=== PATIENT | male | born 1960 | race Hispanic/Latino ===

== ENCOUNTER 2020-08-29 12:51 | Emergency (ER) | payer OTHER ==
[2020-08-29] MEDS ORDERED: Iopamidol-370 76% 500 ML 1 ML ONE (14:11)
[2020-08-29 14:31] LABS: #Basophils 0.1 thou/uL (0.0-0.2); #Eosinphils 0.1 thou/uL (0.0-0.7); #Lymphocytes 1.7 thou/uL (1.20-3.40); #Monocytes 0.5 thou/uL (0.11-0.59); #Neutrophils 4.7 thou/uL (1.40-6.50); %Basophils 0.7 % (0.0-1.0); %Eosinophils 0.8 % (0.0-10.0); %Lymphocytes 24.3 % (21.0-51.0); %Monocytes 7.5 % (0.0-10.0); %Neutrophils 66.6 % (42.0-75.0); Hemoglobin 15.5 g/dL (14.0-18.0); Mean Corpuscular HGB CONC 32.8 g/dL (32.0-36.0); Mean Corpuscular Hemoglobin 27.5 pg (27.0-31.0); Mean Corpuscular Volume 83.8 fL (78.0-98.0); Mean Platelet Volume 8.1 fL (7.4-10.4); Platelet Count 280 thou/uL (130-400); RBC Distribution Width 13.5 % (11.5-14.5); Red Blood Cell (RBC) Count 5.65 mill/uL (4.70-6.10)
[2020-08-29 14:51] LABS: ALT (SGPT) 18 U/L (8-55); AST (SGOT) 19 U/L (5-34); Alkaline Phosphatase 88 U/L (40-110); Anion Gap 14 mmol/L (10-20); BUN (Urea Nitrogen) 16 mg/dL (8.4-25.7); Bilirubin, Total 1.1 mg/dL (0.2-1.2); Calc. Creatinine Clearance 0 mL/min (70-130); Calcium 9.2 mg/dL (7.8-10.44); Carbon Dioxide 25 mmol/L (22-29); Chloride 99 mmol/L (98-107); Estimated GFR-MDRD 56; Globulin 3.9 g/dL (2.4-3.5); Glucose 91 mg/dL (70-105); Lipase 18 U/L (8-78); Potassium 4.3 mmol/L (3.5-5.1); Protein, Total 7.9 g/dL (6.0-8.3); Sodium 134 mmol/L (136-145)
[2020-08-29 14:58] LABS: Bacteria/HPF None Seen HPF (None Seen); Bilirubin Negative (Negative); Blood, Urine 1+ (Negative); Clarity Clear (Clear); Glucose, Urine (Dipstick) Normal (Negative); Ketone, Urine Negative (Negative); Leukocyte Negative Leu/uL (Negative); Nitrite Negative (Negative); Protein, Urine (Dipstick) 50 mg/dL (Neg-Trace); Specific Gravity, Urine 1.031 (1.002-1.036); Squamous Epithelial None Seen HPF (0-3); WBC/HPF 0-3 HPF (0-3); pH, Urine 5.5 (5.0-9.0)
--- NOTE | 2020-08-29 15:55 | CT ---
CT ABDOMEN AND PELVIS PERFORMED WITH CONTRAST ENHANCEMENT: 08/29/20 HISTORY: 60-year-old with right upper and left lower quadrant abdomen pain. The lung bases are clear. The liver shows an element of fatty change. The spleen and pancreas regions are unremarkable. Gallbladder has been removed. There is a 1.6 cm right adrenal nodule and a 4.1 cm left adrenal mass. There is a 10.4 cm upper pole left renal mass. I do not see any evidence for renal vein invasion. The right kidney is normal in appearance. There are some small nodes in the 1 cm rang e along the medial border of the mass near the takeoff of the celiac artery. CT OF PELVIS PERFORMED WITH CONTRAST ENHANCEMENT: Diverticulosis of the descending and sigmoid colon are seen. No adenopathy or mass. The appendix is n ormal. Review of osseous structures show arthritic change of the spine. IMPRESSION: 1. 10.4 cm left renal mass highly suspicious for a renal cell carcinoma. There is evidence for b ilateral adrenal metastases and some small periaortic nodes noted near the takeoff of the celiac and superior mesenteric arteries. 2. Incidental note is made of a punctate nonobstructing lower pole right renal calculus. 3. Diverticulosis. 4. Suggestion of some element of fatty change of the liver. 5. Findings telephoned to Ruslan Davis at the time of this dictation. [place] [facility] [place]
--- NOTE | 2020-08-29 15:59 | RAD ---
Chest 2 views HISTORY: Chest pain. FINDINGS: Cardiac silhouette and pulmonary vasculature are unremarkable. Mediastinum is midline. Lobu lar fatty prominence along the lateral aspect of the pleural space of each hemithorax correlates with CT findings. No confluent airspace consolidation, pneumothorax, or pleural fluid are evident. IMPRESSION : No active cardiopulmonary abnormalities are demonstrated.
== END 2020-08-29 16:04 | disposition home or self-care (01) ==
LOC: ERS 12:51
DX: N20.0 Calculus of kidney (principal); R10.84 Generalized abdominal pain; E78.5 Hyperlipidemia, unspecified; E78.00 Pure hypercholesterolemia, unspecified; I10 Essential (primary) hypertension; Z79.899 Other long term (current) drug therapy
CPT/HCPCS: 36415; 71046; 74177; 80053; 81003; 81015; 83605; 83690; 85025; Q9967

== ENCOUNTER 2020-09-09 06:56 | Outpatient (CLI) | payer BC ==
[2020-09-09 10:54] LABS: Hemoglobin 14.3 g/dL (14.0-18.0); Mean Corpuscular HGB CONC 31.6 G/DL (32.0-36.0); Mean Corpuscular Hemoglobin 26.1 PG (27.0-33.0); Mean Corpuscular Volume 82.6 fl (80.0-100.0); Mean Platelet Volume 10.5 fl (7.4-10.4); Platelet Count 338 10x3/uL (130-400); RBC Distribution Width 14.2 % (11.5-14.5); Red Blood Cell (RBC) Count 5.47 10x6/uL (4.40-5.80); White Blood Cell (WBC) Count 7.8 10x3/uL (4.5-11.0)
[2020-09-09 11:04] LABS: Anion Gap 12 mmol/L (10-20); BUN (Urea Nitrogen) 15 mg/dL (8.4-25.7); Calc. Creatinine Clearance 0 mL/min (70-130); Calcium 8.9 mg/dL (7.8-10.44); Carbon Dioxide 25 mmol/L (22-29); Chloride 105 mmol/L (98-107); Estimated GFR-MDRD 68; Glucose 96 mg/dL (70-105); Potassium 4.4 mmol/L (3.5-5.1); Sodium 138 mmol/L (136-145)
[2020-09-09 11:12] LABS: PTT 27.6 sec (22.0-33.0); Prothrombin Time 10.3 sec (9.5-12.1)
[2020-09-09 22:24] LABS: SARS-CoV-2 MS2 Positive; SARS-CoV-2 N Gene Negative; SARS-CoV-2 S Gene Negative; SARS-CoV-2 by NAA Not Detected (NotDetected); SARS-CoV-2 orf1ab Negative
--- NOTE | 2020-09-12 07:02 | EKG ---
Test Reason : PREOP Blood Pressure : / mmHG Vent. Rate : 068 BPM Atrial Rate : 068 BPM P-R Int : 126 ms QRS Dur : 082 ms QT Int : 358 ms P-R-T Axes : 071 080 069 degrees QTc Int : 380 ms Normal sinus rhythm Normal ECG No previous ECGs available Confirmed by MEGHA DOLAN, JOAO ([id number]) on 09/12/2020 7:02:11 AM Referred By: Ricki HOOVER Confirmed By:JOAO CLEVELAND MD
== END 2020-09-09 06:57 | disposition home or self-care (01) ==
LOC: LABBT 06:56
PROVIDERS: ATTEND Urology
DX: Z01.818 Encounter for other preprocedural examination (principal); D41.02 Neoplasm of uncertain behavior of left kidney; N18.31 Chronic kidney disease, stage 3a; E27.8 Other specified disorders of adrenal gland; Z20.828 Contact with and (suspected) exposure to other viral communicable diseases
CPT/HCPCS: 80048; 85027; 85610; 85730; 87635; 93005; 93010; U0003

== ENCOUNTER 2020-09-09 10:30 | Inpatient (IN) | payer BC ==
[2020-09-11 10:13] VITALS: BMI 34.0
[2020-09-12] MEDS ORDERED: niCARdipine 25 MG/10 ML VIAL ONE (06:52)
[2020-09-12] MEDS ORDERED: Phenylephrine 10 MG/ML VIAL ONE (06:52)
[2020-09-12] MEDS ORDERED: Midazolam HCl 2 mg/2 ml Vial ONE (07:54)
[2020-09-12] MEDS ORDERED: Fentanyl 100 MCG/2 ML VIAL ONE ×3 (07:54→11:44)
[2020-09-12] MEDS ORDERED: Fentanyl 250 MCG/5 ML VIAL ONE (08:19)
[2020-09-12] MEDS ORDERED: HYDROcodone/Acetaminophen 5/325 mg Tablet PO PRN (09:15)
[2020-09-12] MEDS ORDERED: Acetaminophen 500 MG TAB PO PRN (09:15)
[2020-09-12] MEDS ORDERED: diphenhydrAMINE 25 MG CAP PO PRN (09:15)
[2020-09-12] MEDS ORDERED: Hydrocerin (Eucerin) Cream 120 gm Jar TOP PRN (09:15)
[2020-09-12] MEDS ORDERED: Zolpidem Tartrate 5 MG TAB PO PRN ×2 (09:15→13:27)
[2020-09-12] MEDS ORDERED: Promethazine HCl 25 MG SUPP PR PRN (09:15)
[2020-09-12] MEDS ORDERED: traMADol HCl 50 MG TAB PO PRN (09:15)
[2020-09-12] MEDS ORDERED: Ondansetron PF 4 MG/2 ML Vial IVP PRN ×2 (09:15→13:27)
[2020-09-12] MEDS ORDERED: Promethazine HCl 25 MG/ML VIAL IM PRN ×2 (09:15→10:26)
[2020-09-12] MEDS ORDERED: Naloxone HCl 0.4 mg/ml Vial IV PRN (09:15)
[2020-09-12] MEDS ORDERED: Bupivacaine 0.25% 10 ML VIAL EPIDURAL PRN (09:15)
[2020-09-12] MEDS ORDERED: diphenhydrAMINE 50 MG/ML VIAL IVP PRN ×2 (09:15→13:27)
[2020-09-12] MEDS ORDERED: diphenhydrAMINE 50 MG/ML VIAL IM PRN (09:15)
[2020-09-12] MEDS ORDERED: Naloxone HCl 0.4 mg/ml Vial IVP PRN (09:15)
[2020-09-12] MEDS ORDERED: Bupivacaine 0.25% HCL 30 ML VIAL ONE (09:58)
[2020-09-12] MEDS ORDERED: Ondansetron HCl/PF 4 MG/2 ML Vial IVP PRN (10:26)
[2020-09-12] MEDS ORDERED: Promethazine HCl 25 MG/ML VIAL SLOW IVP PRN (10:26)
--- NOTE | 2020-09-12 11:00 | OP ---
DATE OF PROCEDURE: 09/12/2020 PREOPERATIVE DIAGNOSIS: Left renal mass. POSTOPERATIVE DIAGNOSIS: Left renal mass. PROCEDURES PERFORMED: 1. Left radical nephrectomy. 2. Left adrenalectomy. ANESTHESIA: General, epidural. COMPLICATIONS: None. BLOOD LOSS: 150 mL. SPECIMENS: Left kidney, left adrenal. DESCRIPTION OF PROCEDURE: After informed consent, the patient was taken to the operating room, transferred to the table under his own power. Anesthesia was established. A time-out was performed showing the correct patient, site, and procedure. Preoperative antibiotics were administered. He was prepped and draped in the supine position. I began by making an anterior subcostal incision on the left side, which I extended about 2 inches across the midline toward the right side. The incision was carried down to fascia with electrocautery. The muscle was transected with electrocautery and then the peritoneum entered carefully. The peritoneum was opened for the length of the incision and the bowel packed medially. The colon was then deflected using electrocautery and blunt dissection. Splenic attachments were taken down allowing access to the upper pole. I was able to bluntly dissect the lateral edge of the kidney and carried this down underneath the lower pole. The ureter and gonadal were controlled with the LigaSure device and the lower pole was then completely freed. The hilum was then dissected and I was able to easily pass my fingers around the renal vein and artery. A 45 mm vascular load stapler was used to control the renal hilum. A 2nd load was then used to take down the superior medial attachments. The kidney was then bluntly developed and removed. It was passed off as specimen. The adrenal gland remained, so this was carefully dissected and the adrenal vasculature controlled with the LigaSure device and finally a single staple load. The adrenal was then passed off. The renal fossa was inspected. No active bleeding was noted. This was irrigated and then the bowel replaced. Omentum placed over top of the bowel and we closed the fascia in 2 layers running with 0 PDS suture. Subcutaneous tissues were copiously irrigated and then skin was closed with emma. This was dressed with bordered gauze. He was then awoken from anesthesia, transferred back to his hospital bed, and taken to PACU in stable condition, where he will be admitted to the floor. Job ID: [id number] [facility]
[2020-09-12] MEDS ORDERED: Glycopyrrolate 0.2 MG/ML 5 ML SYRINGE ONE (12:07)
[2020-09-12] MEDS ORDERED: Lidocaine 1% PF 5 ML VIAL ONE (12:07)
[2020-09-12] MEDS ORDERED: PROPOFOL 200 MG/20 ML VIAL ONE (12:07)
[2020-09-12] MEDS ORDERED: PHENYLEPHRINE-NS 100 MCG/ML 10 ML SYRINGE ONE (12:07)
[2020-09-12] MEDS ORDERED: Lidocaine 1.5% w/Epi 1:200K 30 ML VIAL (Epid Use) ONE (12:07)
[2020-09-12] MEDS ORDERED: Rocuronium Bromide 10 MG/ML (10ML VIAL) ONE (12:07)
[2020-09-12] MEDS ORDERED: Succinylcholine 200 MG/10 ml SYRINGE FS ONE (12:07)
[2020-09-12] MEDS ORDERED: Dexamethasone 20 MG/5 ML VIAL ONE (12:07)
[2020-09-12] MEDS ORDERED: Ondansetron PF 4 MG/2 ML Vial ONE (12:07)
[2020-09-12] MEDS ORDERED: ePHEDrine 50 MG/ML VIAL ONE (12:07)
[2020-09-12] MEDS ORDERED: hydrALAZINE 20 MG/ML VIAL SLOW IVP PRN (13:27)
[2020-09-12] MEDS ORDERED: Famotidine/PF 20 mg/2ml Vial SLOW IVP SCH (13:45)
[2020-09-12] MEDS ORDERED: Docusate 100 MG CAP PO SCH (13:45)
[2020-09-12] MEDS ORDERED: Enoxaparin Sodium 40 MG/0.4 ML SYRINGE SC SCH (13:45)
[2020-09-12] MEDS: Amlodipine 10 MG TAB PO SCH (14:16)
[2020-09-12] MEDS: HYDROcodone/Acetaminophen 5/325 mg Tablet PO PRN (14:35)
[2020-09-12] MEDS: Sodium Chloride 0.9% 1,000 ML IV SCH (14:41)
[2020-09-12] MEDS: Famotidine/PF 20 mg/2ml Vial SLOW IVP SCH (21:10)
[2020-09-12] MEDS: Ezetimibe 10 MG TAB PO SCH (21:14)
[2020-09-12] MEDS: Docusate 100 MG CAP PO SCH (21:15)
[2020-09-12] MEDS: fentaNYL Citrate/PF 500 MCG, Bupivacaine 10 ML in Sodium Chloride 0.9% 80 ML EPIDURAL SCH (21:48)
[2020-09-13] MEDS: Sodium Chloride 0.9% 1,000 ML IV SCH ×4 (03:00→23:38)
[2020-09-13] MEDS: HYDROcodone/Acetaminophen 5/325 mg Tablet PO PRN (05:43)
[2020-09-13 06:47] LABS: #Lymphocytes 2.2 thou/uL (1.20-3.40); #Monocytes 0.8 thou/uL (0.11-0.59); #Neutrophils 9.1 thou/uL (1.40-6.50); %Basophils 0.1 % (0.0-1.0); %Eosinophils 0.1 % (0.0-10.0); %Lymphocytes 17.9 % (21.0-51.0); %Monocytes 6.8 % (0.0-10.0); %Neutrophils 75.1 % (42.0-75.0); Hemoglobin 12.6 g/dL (14.0-18.0); Mean Corpuscular HGB CONC 31.9 g/dL (32.0-36.0); Mean Corpuscular Volume 84.7 fL (78.0-98.0); Mean Platelet Volume 8.8 fL (7.4-10.4); Platelet Count 265 thou/uL (130-400); RBC Distribution Width 13.4 % (11.5-14.5); Red Blood Cell (RBC) Count 4.64 mill/uL (4.70-6.10); White Blood Cell (WBC) Count 12.2 thou/uL (4.8-10.8)
[2020-09-13 07:12] LABS: Anion Gap 13 mmol/L (10-20); BUN (Urea Nitrogen) 14 mg/dL (8.4-25.7); Calc. Creatinine Clearance 77 mL/min (70-130); Calcium 8.2 mg/dL (7.8-10.44); Carbon Dioxide 22 mmol/L (22-29); Chloride 104 mmol/L (98-107); Estimated GFR-MDRD 55; Glucose 84 mg/dL (70-105); Potassium 3.9 mmol/L (3.5-5.1); Sodium 135 mmol/L (136-145)
[2020-09-13] MEDS ORDERED: FLU VACC QS2020-21(6MOS UP)/PF 60 MCG/0.5 ML SYRINGE IM ONE (09:00)
[2020-09-13] MEDS: Docusate 100 MG CAP PO SCH ×2 (09:27→20:45)
[2020-09-13] MEDS: Famotidine/PF 20 mg/2ml Vial SLOW IVP SCH ×2 (09:27→20:46)
[2020-09-13] MEDS: Enoxaparin Sodium 40 MG/0.4 ML SYRINGE SC SCH (09:28)
[2020-09-13] MEDS: Amlodipine 10 MG TAB PO SCH (09:31)
--- NOTE | 2020-09-13 10:51 | PRG ---
DATE OF SERVICE: 09/13/2020 SUBJECTIVE: The patient states that he is doing pretty well. He has some mild flank and abdominal pain, but nothing terrible. He states his epidural and his pain pills seem to be working well. He did get a little nauseated this morning because he took his pain pills on an empty stomach. He has not passed any gas, but he has been up and walking. OBJECTIVE: VITAL SIGNS: Temperature 97.5, pulse 66, respirations 16, blood pressure 104/67, saturation 92% on room air. GENERAL: No apparent distress, communicative and alert. CARDIOVASCULAR: Regular rate and rhythm. ABDOMEN: Soft, nontender, and nondistended. Incision dressed with mild spotting. : Maldonado catheter in place with clear yellow urine. EXTREMITIES: No edema. LABORATORY EVALUATION: Full set of labs are in the [facility] system, which I have reviewed. Of note, the patient's white count is 12.2 with hemoglobin 12.6. Creatinine is currently 1.33. ASSESSMENT AND PLAN: A 60-year-old white male, status post left radical nephrectomy, postop day 1, recovering quite well. He does not appear to have an ileus and I do think that he can continue his diet. I would recommend continuation of Maldonado catheter until the epidural is removed. I would keep the epidural in for today and plan for removal tomorrow. He should continue to ambulate out of bed and use his incentive spirometer. We will plan for labs again in the morning and continue to follow. Dr. Lee will resume care on Tuesday. Job ID: [id number]
[2020-09-13] MEDS: traMADol HCl 50 MG TAB PO PRN (14:00)
[2020-09-13] MEDS: Ezetimibe 10 MG TAB PO SCH (20:45)
[2020-09-13] MEDS: fentaNYL Citrate/PF 500 MCG, Bupivacaine 10 ML in Sodium Chloride 0.9% 80 ML EPIDURAL SCH (23:41)
[2020-09-14 05:57] LABS: #Eosinphils 0.1 thou/uL (0.0-0.7); #Lymphocytes 1.9 thou/uL (1.20-3.40); #Monocytes 0.7 thou/uL (0.11-0.59); %Eosinophils 0.9 % (0.0-10.0); %Lymphocytes 19.5 % (21.0-51.0); %Monocytes 7.5 % (0.0-10.0); %Neutrophils 72.1 % (42.0-75.0); Hemoglobin 12.1 g/dL (14.0-18.0); Mean Corpuscular HGB CONC 32.6 g/dL (32.0-36.0); Mean Corpuscular Hemoglobin 27.6 pg (27.0-31.0); Mean Corpuscular Volume 84.7 fL (78.0-98.0); Mean Platelet Volume 9.2 fL (7.4-10.4); Platelet Count 218 thou/uL (130-400); RBC Distribution Width 13.3 % (11.5-14.5); Red Blood Cell (RBC) Count 4.37 mill/uL (4.70-6.10); White Blood Cell (WBC) Count 9.8 thou/uL (4.8-10.8)
[2020-09-14 06:11] LABS: Anion Gap 12 mmol/L (10-20); BUN (Urea Nitrogen) 11 mg/dL (8.4-25.7); Calc. Creatinine Clearance 74 mL/min (70-130); Calcium 8.2 mg/dL (7.8-10.44); Carbon Dioxide 22 mmol/L (22-29); Chloride 101 mmol/L (98-107); Estimated GFR-MDRD 53; Glucose 88 mg/dL (70-105); Potassium 4.4 mmol/L (3.5-5.1); Sodium 131 mmol/L (136-145)
[2020-09-14] MEDS: Enoxaparin Sodium 40 MG/0.4 ML SYRINGE SC SCH (08:22)
[2020-09-14] MEDS: Docusate 100 MG CAP PO SCH ×2 (08:22→20:31)
[2020-09-14] MEDS: Famotidine/PF 20 mg/2ml Vial SLOW IVP SCH ×2 (08:23→20:31)
[2020-09-14] MEDS: Sodium Chloride 0.9% 1,000 ML IV SCH (11:41)
[2020-09-14] MEDS: fentaNYL Citrate/PF 500 MCG, Bupivacaine 10 ML in Sodium Chloride 0.9% 80 ML EPIDURAL SCH (12:29)
--- NOTE | 2020-09-14 14:04 | PRG ---
DATE OF SERVICE: 09/14/2020 SUBJECTIVE: The patient states he is feeling very good. He has very little pain. He still has his epidural in. He is passing gas, but has not had a bowel movement. His appetite has been good. He has been up and walking around. OBJECTIVE: VITAL SIGNS: Temperature 98.6, pulse 76, respirations 20, blood pressure 138/74, saturation 94% on room air. GENERAL: No apparent distress. Communicative and alert. CARDIOVASCULAR: Regular rate and rhythm. ABDOMEN: Soft, nontender, and nondistended. Incision is currently dressed with no increase in size of the spotting. GENITOURINARY: Maldonado catheter in place, draining clear yellow urine. EXTREMITIES: No edema. LABORATORY EVALUATION: White count is 9.8, hemoglobin 12.1. Creatinine of 1.38. ASSESSMENT AND PLAN: A 60-year-old white male, status post left open nephrectomy, postoperative day #2, recovering extremely well. I do think that he could probably get his epidural out today. I would recommend that his basal rate be decreased to either 4 or 6 and if he is not having any increase in pain, the epidural can subsequently be removed. The patient states the pain pills are working quite well for him. His dressing can probably be removed tomorrow by Dr. Lee. He should continue walking using his incentive spirometer. I anticipate that he will have a bowel movement soon so long as he continues to walk and minimize narcotics. Dr. Lee will be resuming care tomorrow. Job ID: [id number]
[2020-09-14] MEDS: traMADol HCl 50 MG TAB PO PRN (18:25)
[2020-09-14] MEDS: Ezetimibe 10 MG TAB PO SCH (20:31)
[2020-09-15] MEDS: Sodium Chloride 0.9% 1,000 ML IV SCH ×3 (02:21→13:25)
[2020-09-15] MEDS: fentaNYL Citrate/PF 500 MCG, Bupivacaine 10 ML in Sodium Chloride 0.9% 80 ML EPIDURAL SCH (04:38)
[2020-09-15 05:28] LABS: #Eosinphils 0.2 thou/uL (0.0-0.7); #Lymphocytes 1.7 thou/uL (1.20-3.40); #Monocytes 0.7 thou/uL (0.11-0.59); #Neutrophils 6.6 thou/uL (1.40-6.50); %Basophils 0.4 % (0.0-1.0); %Eosinophils 2.6 % (0.0-10.0); %Lymphocytes 18.3 % (21.0-51.0); %Monocytes 7.6 % (0.0-10.0); %Neutrophils 71.1 % (42.0-75.0); Hemoglobin 11.6 g/dL (14.0-18.0); Mean Corpuscular HGB CONC 31.9 g/dL (32.0-36.0); Mean Corpuscular Hemoglobin 26.6 pg (27.0-31.0); Mean Corpuscular Volume 83.5 fL (78.0-98.0); Platelet Count 234 thou/uL (130-400); RBC Distribution Width 13.2 % (11.5-14.5); Red Blood Cell (RBC) Count 4.33 mill/uL (4.70-6.10); White Blood Cell (WBC) Count 9.3 thou/uL (4.8-10.8)
[2020-09-15 05:54] LABS: Anion Gap 9 mmol/L (10-20); BUN (Urea Nitrogen) 9 mg/dL (8.4-25.7); Calc. Creatinine Clearance 73 mL/min (70-130); Calcium 8.3 mg/dL (7.8-10.44); Carbon Dioxide 27 mmol/L (22-29); Chloride 101 mmol/L (98-107); Estimated GFR-MDRD 52; Glucose 98 mg/dL (70-105); Potassium 4.3 mmol/L (3.5-5.1); Sodium 133 mmol/L (136-145)
[2020-09-15] MEDS: Famotidine/PF 20 mg/2ml Vial SLOW IVP SCH ×2 (08:04→20:32)
[2020-09-15] MEDS: Docusate 100 MG CAP PO SCH ×2 (08:04→20:32)
[2020-09-15] MEDS: Enoxaparin Sodium 40 MG/0.4 ML SYRINGE SC SCH (08:05)
[2020-09-15] MEDS ORDERED: HYDROcodone/Acetaminophen 10/325 mg Tablet PO PRN ×2 (09:47→09:48)
[2020-09-15] MEDS ORDERED: Amlodipine 10 MG TAB PO SCH (11:15)
--- NOTE | 2020-09-15 13:26 | PRG ---
DATE OF SERVICE: 09/15/2020 SUBJECTIVE: No problems overnight. He is having only minimal discomfort with his epidural turned down yesterday. He has been ambulating and tolerating oral intake. He is passing gas, but no bowel movement yet. OBJECTIVE: VITAL SIGNS: Afebrile, vitals stable. Slightly hypertensive. Excellent urine output. GENITOURINARY: Malodnado catheter still in place. LUNGS: Unlabored breathing. ABDOMEN: Soft, nondistended, appropriately tender. Incision healthy. Brook intact. LABORATORY STUDIES: Hemoglobin stable at 11.6. Creatinine with slight rise to 1.40. ASSESSMENT: 1. Postoperative day 3 of left nephrectomy and adrenalectomy. PLAN: Routine postop care, transitioning from epidural, continue out of bed and ambulate, continue regular diet, DVT and GI prophylaxis. DISPOSITION: I anticipate discharge home tomorrow. Job ID: [id number]
[2020-09-15] MEDS ORDERED: Enoxaparin Sodium 40 MG/0.4 ML SYRINGE SC SCH (16:00)
[2020-09-15] MEDS: traMADol HCl 50 MG TAB PO PRN (20:32)
[2020-09-15] MEDS: Ezetimibe 10 MG TAB PO SCH (20:32)
[2020-09-16] MEDS: Sodium Chloride 0.9% 1,000 ML IV SCH (00:37)
[2020-09-16 06:29] LABS: Anion Gap 13 mmol/L (10-20); BUN (Urea Nitrogen) 12 mg/dL (8.4-25.7); Calc. Creatinine Clearance 77 mL/min (70-130); Calcium 8.7 mg/dL (7.8-10.44); Carbon Dioxide 25 mmol/L (22-29); Chloride 100 mmol/L (98-107); Estimated GFR-MDRD 55; Glucose 122 mg/dL (70-105); Potassium 3.7 mmol/L (3.5-5.1); Sodium 134 mmol/L (136-145)
[2020-09-16 08:05] VITALS: BP 133/77; TEMP 98.2
[2020-09-16] MEDS ORDERED: Amlodipine 10 MG TAB PO SCH (09:00)
[2020-09-16] MEDS: Enoxaparin Sodium 40 MG/0.4 ML SYRINGE SC SCH (09:27)
[2020-09-16] MEDS: Docusate 100 MG CAP PO SCH (09:27)
[2020-09-16] MEDS: Famotidine/PF 20 mg/2ml Vial SLOW IVP SCH (09:27)
--- NOTE | 2020-09-16 14:11 | DIS ---
DATE OF ADMISSION: 09/12/2020 DATE OF DISCHARGE: 09/16/2020 DISCHARGE DIAGNOSIS: Left renal mass. HOSPITAL COURSE: The patient underwent an open left nephrectomy and adrenalectomy on September 12. There were no surgical complications. He was managed with epidural until September 15, at which point, it was removed as well as Maldonado catheter. He was voiding well afterwards and controlling his pain with oral medications. The day of discharge, he was having minimal discomfort, ambulating, tolerating diet, having bowel function. He was deemed stable for discharge home at that point. DISCHARGE PHYSICAL EXAMINATION: GENERAL: No acute distress. LUNGS: Unlabored breathing. HEART: Regular rate and rhythm. ABDOMEN: Soft, nondistended, appropriately tender over the incision. The incision is healthy with emma intact. SKIN: Warm and dry. EXTREMITIES: No peripheral edema. DISCHARGE INSTRUCTIONS: Bathe normally, light non-stressful activities, resume regular diet. DISCHARGE MEDICATIONS: Resume. Job ID: [id number]
--- NOTE | 2020-09-18 05:06 | PQF ---
CLINICAL DOCUMENTATION CLARIFICATION FORM: Dear :Kai Lee Date / Time: 09/18/2020 6581 Please exercise your independent, professional judgment in responding to the clarification form. Clinical indicators are provided on the bottom of this form for your review Please check appropriate box(es): [ ] Associated Diagnosis: Hyponatremia [x ] Abnormal laboratory findings not clinically significant [ ] Other diagnosis [ ] Unable to determine In addition, please specify: Present on Admission (POA): [ ] Yes [ ] No [ ] Unable to determine Physician Signature: Date/Time: For continuity of documentation, please document condition throughout progress notes and discharge summary. Thank You. To be completed by CDI/Coding staff for physician review: Present Clinical Indicators - Signs / Symptoms / Labs Results and Location in Medical Record [X] Sodium 135 Laboratory 09/13 [X] Sodium 131 Laboratory 09/14 [X] Sodium 133 Laboratory 09/15 [X] Sodium 134 Laboratory 09/16 [X] He did get a little nauseated PN 09/13 Present Risk Factors Results and Location in Medical Record [X] CKD 3 Scanned H&P [X] Renal mass Scanned H&P [X] Adrenal mass Scanned H&P [X] Obesity Scanned H&P Present Treatments Results and Location in Medical Record [X] Series of electrolyte labs Laboratory 09/12 [X] IVF NS 1L MAR 09/12 CDS/Landscaping Crew Leader Signature: Carrie Lee Phone #: [phone] Date/Time: 09/18/2020 6336 This is a permanent part of the Medical Record [facility]
--- NOTE | 2020-09-18 05:07 | PQF ---
CLINICAL DOCUMENTATION CLARIFICATION FORM: Dear :Kai Lee Date / Time: 09/18/2020 0506 Please exercise your independent, professional judgment in responding to the clarification form. 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 Thank You. 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 Pathology report 09/12 Dr Urbina [X] Tumor extends into renal sinus Pathology report 09/12 Dr Urbina [X] Left renal mass Operative report Dr Tobar 09/12 [X] Left adrenal mass Scanned H&P Present Risk Factors Results and Location in Medical Record [X] CKD 3 Scanned H&P [X] HTN Scanned H&P [X] Obesity Scanned H&P [X] Former Smoker Scanned H&P Present Treatments Results and Location in Medical Record [X] Left radical nephrectomy Operative report Dr Tobar 09/12 [X] Left adrenalectomy Operative report Dr Tobar 09/12 CDS/Affiliate Manager Signature: Carrie Laura Lee Phone #: ext [phone] Date/Time: 09/18/2020 0506 This is a permanent part of the Medical Record [facility]
== END 2020-09-16 11:35 | disposition home or self-care (01) | DRG 657 ==
LOC: SURG A 09-12 06:05
PROVIDERS: ADMIT Urology; ATTEND Urology
PROC: 0TB10ZZ Excision of Left Kidney, Open Approach (ICD-10-PCS; principal; 2020-09-12)
PROC: 0GB20ZZ Excision of Left Adrenal Gland, Open Approach (ICD-10-PCS; 2020-09-12)
DX: C64.2 Malignant neoplasm of left kidney, except renal pelvis (principal); C79.72 Secondary malignant neoplasm of left adrenal gland; Z20.828 Contact with and (suspected) exposure to other viral communicable diseases; E78.5 Hyperlipidemia, unspecified; E66.9 Obesity, unspecified; I11.9 Hypertensive heart disease without heart failure; E78.00 Pure hypercholesterolemia, unspecified; N18.30 Chronic kidney disease, stage 3 unspecified; E27.8 Other specified disorders of adrenal gland; Z23 Encounter for immunization; Z79.899 Other long term (current) drug therapy; Z68.34 Body mass index [BMI] 34.0-34.9, adult
CPT/HCPCS: 36415; 80048; 85025; 85027; 85610; 85730; 86850; 86900; 86901; 87635; 88307; 90471; 90662; 93005; G0008; J0690; J1100; J1650; J2001; J2250; J2370; J2405; J2704; J3010; J3490; S0020; S0028; U0003

== ENCOUNTER 2021-01-09 07:58 | Outpatient (CLI) | payer BC ==
[2021-01-09] MEDS ORDERED: Magnevist 469MG/ML 20 ML VIAL ONE (12:24)
== END 2021-01-09 07:59 | disposition home or self-care (01) ==
LOC: BICMRI 07:58
PROVIDERS: ATTEND Internal Medicine Hematology & Oncology
DX: M54.9 Dorsalgia, unspecified (principal); C64.2 Malignant neoplasm of left kidney, except renal pelvis; C79.89 Secondary malignant neoplasm of other specified sites; M47.817 Spondylosis without myelopathy or radiculopathy, lumbosacral region; D18.09 Hemangioma of other sites; M51.36 Other intervertebral disc degeneration, lumbar region; M51.86 Other intervertebral disc disorders, lumbar region; M51.87 Other intervertebral disc disorders, lumbosacral region; M48.07 Spinal stenosis, lumbosacral region; Z90.5 Acquired absence of kidney
CPT/HCPCS: 72158; A9579

== ENCOUNTER 2021-02-16 08:14 | Outpatient (CLI) | payer BC | END 2021-02-16 08:15 | disposition home or self-care (01) | LOC: BICCT 08:14 | PROVIDERS: ATTEND Internal Medicine Hematology & Oncology | DX: C64.2 Malignant neoplasm of left kidney, except renal pelvis (principal); C79.89 Secondary malignant neoplasm of other specified sites; C78.7 Secondary malignant neoplasm of liver and intrahepatic bile duct; A09 Infectious gastroenteritis and colitis, unspecified; K63.89 Other specified diseases of intestine; Z90.5 Acquired absence of kidney | CPT/HCPCS: 71260; 74177 ==

== ENCOUNTER 2021-06-14 09:14 | Emergency (ER) | payer BC ==
[2021-06-14] MEDS ORDERED: Metoclopramide HCl 10 MG/2 ML VIAL ONE (12:10)
[2021-06-14] MEDS ORDERED: Proparacaine 0.5% Opth 15 ML BOT ONE (12:10)
[2021-06-14] MEDS ORDERED: diphenhydrAMINE 50 MG/ML VIAL ONE (12:10)
== END 2021-06-14 14:14 | disposition home or self-care (01) ==
LOC: ERS 09:14
DX: I10 Essential (primary) hypertension (principal); R51.9 Headache, unspecified; R29.700 NIHSS score 0; E78.5 Hyperlipidemia, unspecified; E78.00 Pure hypercholesterolemia, unspecified; Z79.899 Other long term (current) drug therapy
CPT/HCPCS: 70450; 96365; 96375; J1200; J2765

== ENCOUNTER 2021-11-05 10:04 | Outpatient (CLI) | payer OTHER | END 2021-11-05 10:05 | disposition home or self-care (01) | LOC: BICCT 10:04 | PROVIDERS: ATTEND Internal Medicine Critical Care Medicine | DX: R91.8 Other nonspecific abnormal finding of lung field (principal) | CPT/HCPCS: 71250 ==

== ENCOUNTER 2021-12-04 07:21 | Outpatient (CLI) | payer OTHER ==
[2021-12-04] MEDS ORDERED: Iopamidol 370 76% 100 ML VIAL ONE (10:17)
== END 2021-12-04 07:22 | disposition home or self-care (01) ==
LOC: CT 07:21
PROVIDERS: ATTEND Internal Medicine Critical Care Medicine
DX: J18.9 Pneumonia, unspecified organism (principal); R91.8 Other nonspecific abnormal finding of lung field; R59.0 Localized enlarged lymph nodes; R91.1 Solitary pulmonary nodule; M79.89 Other specified soft tissue disorders; L90.5 Scar conditions and fibrosis of skin; Z90.49 Acquired absence of other specified parts of digestive tract; Z90.5 Acquired absence of kidney
CPT/HCPCS: 71260; 74177; 82565; Q9967

== ENCOUNTER 2021-12-07 11:54 | Outpatient (CLI) | payer OTHER ==
[2021-12-08 09:19] LABS: SARS-CoV-2 NAA Rapid Test DETECTED (NotDetected)
== END 2021-12-07 11:55 | disposition home or self-care (01) ==
LOC: LABBT 11:54
PROVIDERS: ATTEND Internal Medicine Critical Care Medicine
DX: U07.1 COVID-19 (principal); Z01.812 Encounter for preprocedural laboratory examination; J18.9 Pneumonia, unspecified organism
CPT/HCPCS: U0002; U0003; U0005

== ENCOUNTER 2021-12-08 07:31 | Day surgery (SDC) | payer OTHER ==
[2021-12-07 10:51] VITALS: BMI 33.6
[2021-12-08] MEDS ORDERED: Fentanyl 250 MCG/5 ML VIAL ONE (09:25)
[2021-12-08] MEDS ORDERED: Famotidine/PF 20 mg/2ml Vial ONE (09:25)
== END 2021-12-08 09:53 | disposition home or self-care (01) ==
LOC: SDC 07:31
PROVIDERS: ATTEND Internal Medicine Critical Care Medicine
DX: R91.8 Other nonspecific abnormal finding of lung field (principal); I10 Essential (primary) hypertension; E78.00 Pure hypercholesterolemia, unspecified; E03.9 Hypothyroidism, unspecified; E89.6 Postprocedural adrenocortical (-medullary) hypofunction; E66.9 Obesity, unspecified; Z68.33 Body mass index [BMI] 33.0-33.9, adult; Z53.9 Procedure and treatment not carried out, unspecified reason; Z86.16 Personal history of COVID-19; Z87.891 Personal history of nicotine dependence; Z79.899 Other long term (current) drug therapy; Z90.5 Acquired absence of kidney
CPT/HCPCS: 93005; 93010; J3010; S0028

== ENCOUNTER 2021-12-22 07:07 | Day surgery (SDC) | payer OTHER ==
[2021-12-18 12:57] VITALS: BMI 33.6
[2021-12-22] MEDS ORDERED: Fentanyl 250 MCG/5 ML VIAL ONE (09:08)
[2021-12-22] MEDS ORDERED: Dexamethasone 20 MG/5 ML VIAL ONE (09:15)
[2021-12-22] MEDS ORDERED: Succinylcholine 200 MG/10 ml SYRINGE FS ONE (09:15)
[2021-12-22] MEDS ORDERED: PROPOFOL 200 MG/20 ML VIAL ONE (09:15)
[2021-12-22] MEDS ORDERED: Rocuronium Bromide 10 MG/ML (10ML VIAL) ONE (09:15)
[2021-12-22] MEDS ORDERED: ePHEDrine 50 MG/ML VIAL ONE (09:15)
[2021-12-22] MEDS ORDERED: Lidocaine 1% PF 5 ML VIAL ONE (09:15)
[2021-12-22] MEDS ORDERED: Ondansetron PF 4 MG/2 ML Vial ONE (09:15)
[2021-12-22] MEDS ORDERED: EPINEPHrine 1 MG/10 ML Abboject SYRINGE ONE (09:41)
[2021-12-29 11:39] LABS: Fungus Stain Final report (.)
[2022-01-19 09:41] LABS: Fungus Culture Final report (.)
== END 2021-12-22 12:09 | disposition home or self-care (01) ==
LOC: SDC 07:07
PROVIDERS: ATTEND Internal Medicine Critical Care Medicine
PROC: 0BDB8ZX Extraction of Left Lower Lobe Bronchus, Via Natural or Artificial Opening Endoscopic, Diagnostic (ICD-10-PCS; principal; 2021-12-22)
PROC: 0BBJ8ZX Excision of Left Lower Lung Lobe, Via Natural or Artificial Opening Endoscopic, Diagnostic (ICD-10-PCS; principal; 2021-12-22)
DX: R91.8 Other nonspecific abnormal finding of lung field (principal); I10 Essential (primary) hypertension; E78.00 Pure hypercholesterolemia, unspecified; E03.9 Hypothyroidism, unspecified; E89.6 Postprocedural adrenocortical (-medullary) hypofunction; E66.9 Obesity, unspecified; Z68.33 Body mass index [BMI] 33.0-33.9, adult; Z86.16 Personal history of COVID-19; Z87.891 Personal history of nicotine dependence; Z79.899 Other long term (current) drug therapy; Z90.5 Acquired absence of kidney
CPT/HCPCS: 71045; 87070; 87102; 87205; 87206; 88112; 88305; 88312; J0171; J1100; J2405; J2704; J3010; J3490

== ENCOUNTER 2022-03-01 09:31 | Outpatient (CLI) | payer OTHER | END 2022-03-01 09:32 | disposition home or self-care (01) | LOC: RAD 09:31 | PROVIDERS: ATTEND Internal Medicine Critical Care Medicine | DX: R06.00 Dyspnea, unspecified (principal); R91.8 Other nonspecific abnormal finding of lung field | CPT/HCPCS: 71046 ==

== ENCOUNTER 2022-03-30 06:17 | Observation (INO) | payer OTHER ==
[2022-03-30 07:00] LABS: #Eosinphils 0.3 thou/uL (0.0-0.7); #Lymphocytes 2.1 thou/uL (1.20-3.40); #Monocytes 0.5 thou/uL (0.11-0.59); %Basophils 0.2 % (0.0-1.0); %Eosinophils 2.6 % (0.0-10.0); %Lymphocytes 21.2 % (21.0-51.0); Hemoglobin 16.2 g/dL (14.0-18.0); Mean Corpuscular HGB CONC 33.1 g/dL (32.0-36.0); Mean Corpuscular Hemoglobin 28.5 pg (27.0-31.0); Mean Corpuscular Volume 86.1 fL (78.0-98.0); Mean Platelet Volume 7.8 fL (7.4-10.4); Platelet Count 302 thou/uL (130-400); RBC Distribution Width 13.5 % (11.5-14.5); Red Blood Cell (RBC) Count 5.69 mill/uL (4.70-6.10); White Blood Cell (WBC) Count 9.8 thou/uL (4.8-10.8)
[2022-03-30 07:30] LABS: ALT (SGPT) 18 U/L (8-55); AST (SGOT) 20 U/L (5-34); Albumin 3.8 g/dL (3.5-5.0); Alkaline Phosphatase 74 U/L (40-110); Anion Gap 13 mmol/L (10-20); BUN (Urea Nitrogen) 17 mg/dL (8.4-25.7); Calc. Creatinine Clearance 0 mL/min (70-130); Calcium 9.5 mg/dL (7.8-10.44); Carbon Dioxide 27 mmol/L (22-29); Chloride 102 mmol/L (98-107); Globulin 3.3 g/dL (2.4-3.5); Glucose 101 mg/dL (70-105); Potassium 3.7 mmol/L (3.5-5.1); Protein, Total 7.1 g/dL (6.0-8.3); Sodium 138 mmol/L (136-145)
[2022-03-30] MEDS ORDERED: Aspirin Chewable 81 MG TAB ONE (07:37)
[2022-03-30] MEDS ORDERED: Iopamidol-370 76% 500 ML 1 ML ONE (09:14)
[2022-03-30] MEDS ORDERED: Azithromycin 500 MG VIAL ONE ×2 (09:42→10:51)
[2022-03-30] MEDS ORDERED: cefTRIAXone\\ROCEPHIN 1 GM VIAL ONE (09:42)
[2022-03-30 09:48] LABS: Troponin I Less than 0.010 ng/mL (< 0.028)
[2022-03-30] MEDS ORDERED: Acetaminophen 650 MG Suppository PR PRN (10:21)
[2022-03-30] MEDS ORDERED: Acetaminophen 325 MG TAB PO PRN (10:21)
[2022-03-30] MEDS ORDERED: Calcium Carbonate 500 MG ChewTAB PO PRN (10:21)
[2022-03-30] MEDS ORDERED: Senokot S 8.6-50 MG TAB PO PRN (10:21)
[2022-03-30] MEDS ORDERED: Bisacodyl 5 MG TAB PO PRN (10:21)
[2022-03-30] MEDS ORDERED: Enoxaparin Sodium 40 MG/0.4 ML SYRINGE SC SCH (10:30)
[2022-03-30] MEDS ORDERED: Nitroglycerin 0.4 MG TAB (25 Tab Bottle) SL PRN (10:32)
[2022-03-30] MEDS ORDERED: Aspirin 325 MG TAB PO SCH (10:45)
[2022-03-30 11:06] LABS: SARS-CoV-2 NAA Rapid Test Not Detected (NotDetected)
[2022-03-30 12:35] LABS: Troponin I Less than 0.010 ng/mL (< 0.028)
[2022-03-30 15:29] VITALS: BMI 32.9
[2022-03-30] MEDS ORDERED: Prevnar 13-Val Conj/PF 0.5 ML SYRINGE IM ONE (15:45)
[2022-03-30] MEDS ORDERED: Atorvastatin Calcium 40 MG TAB PO SCH (21:00)
[2022-03-30] MEDS ORDERED: Ezetimibe 10 MG TAB PO SCH (21:00)
[2022-03-30] MEDS ORDERED: Famotidine 20 MG TAB PO SCH (21:00)
[2022-03-31 04:58] LABS: #Eosinphils 0.4 thou/uL (0.0-0.7); #Lymphocytes 1.5 thou/uL (1.20-3.40); #Monocytes 0.5 thou/uL (0.11-0.59); #Neutrophils 6.6 thou/uL (1.40-6.50); %Basophils 0.3 % (0.0-1.0); %Lymphocytes 17.1 % (21.0-51.0); %Monocytes 5.5 % (0.0-10.0); %Neutrophils 73.2 % (42.0-75.0); Hemoglobin 15.6 g/dL (14.0-18.0); Mean Corpuscular HGB CONC 32.9 g/dL (32.0-36.0); Mean Corpuscular Hemoglobin 28.6 pg (27.0-31.0); Mean Platelet Volume 7.9 fL (7.4-10.4); Platelet Count 262 thou/uL (130-400); RBC Distribution Width 13.2 % (11.5-14.5); Red Blood Cell (RBC) Count 5.45 mill/uL (4.70-6.10)
[2022-03-31 05:05] LABS: Hemoglobin A1c 5.8 % (4.0-6.0)
[2022-03-31 05:19] LABS: ALT (SGPT) 15 U/L (8-55); AST (SGOT) 18 U/L (5-34); Albumin 3.4 g/dL (3.5-5.0); Alkaline Phosphatase 66 U/L (40-110); Anion Gap 13 mmol/L (10-20); BUN (Urea Nitrogen) 16 mg/dL (8.4-25.7); Bilirubin, Total 0.7 mg/dL (0.2-1.2); Calc. Creatinine Clearance 67 mL/min (70-130); Calcium 8.9 mg/dL (7.8-10.44); Carbon Dioxide 24 mmol/L (22-29); Cardiac Risk 5.2 (Less than 4.5); Chloride 101 mmol/L (98-107); Cholesterol 198 mg/dl (< 200 Desired); Globulin 2.9 g/dL (2.4-3.5); Glucose 99 mg/dL (70-105); HDL Cholesterol 38 mg/dL (>60 Neg Risk); LDL Cholesterol, Calculated 128 mg/dL; Potassium 3.6 mmol/L (3.5-5.1); Protein, Total 6.3 g/dL (6.0-8.3); Sodium 134 mmol/L (136-145); Triglycerides 158 mg/dL (Less than 150)
[2022-03-31 05:38] LABS: Free T4 (Free Thyroxine) 0.92 ng/dL (0.70-1.48); Thyroid Stimulating Hormone 1.6891 uIU/mL (0.35-4.94)
[2022-03-31] MEDS ORDERED: Levothyroxine Sodium 100 MCG TAB PO SCH (06:00)
[2022-03-31] MEDS ORDERED: PYRIDOXINE HCL PO SCH (09:00)
[2022-03-31] MEDS ORDERED: Chlorthalidone 25 MG TAB PO SCH ×2 (09:00)
[2022-03-31] MEDS ORDERED: Enoxaparin Sodium 40 MG/0.4 ML SYRINGE SC SCH (09:00)
[2022-03-31] MEDS ORDERED: Non-Formulary Item 1 EACH (Levothyroxine Sodium [Levothyroxine] 100 MCG Capsule) PO SCH (09:00)
[2022-03-31] MEDS ORDERED: Aspirin Chewable 81 MG TAB PO SCH (09:00)
[2022-03-31] MEDS ORDERED: pyridOXINE 50 MG (B6) TAB PO SCH (09:00)
[2022-03-31] MEDS ORDERED: [UNRECOGNIZED DRUG - OTHER] PO SCH (09:00)
[2022-03-31] MEDS ORDERED: Azithromycin 250 MG TAB PO SCH (09:00)
[2022-03-31 12:21] VITALS: BP 129/71; TEMP 97.4
== END 2022-03-31 12:50 | disposition home or self-care (01) ==
LOC: ERS 06:17 → ERHOLD 08:25 → 2SW 14:34
PROVIDERS: ADMIT Family Medicine; ATTEND Family Medicine
DX: R07.2 Precordial pain (principal); R53.1 Weakness; R06.09 Other forms of dyspnea; E03.9 Hypothyroidism, unspecified; C64.2 Malignant neoplasm of left kidney, except renal pelvis; C79.71 Secondary malignant neoplasm of right adrenal gland; C79.72 Secondary malignant neoplasm of left adrenal gland; I12.9 Hypertensive chronic kidney disease with stage 1 through stage 4 chronic kidney disease, or unspecified chronic kidney disease; N18.9 Chronic kidney disease, unspecified; E78.5 Hyperlipidemia, unspecified; J90 Pleural effusion, not elsewhere classified; R59.0 Localized enlarged lymph nodes; R91.1 Solitary pulmonary nodule; E89.6 Postprocedural adrenocortical (-medullary) hypofunction; Z86.16 Personal history of COVID-19; Z87.891 Personal history of nicotine dependence; Z79.890 Hormone replacement therapy; Z79.899 Other long term (current) drug therapy; Z90.5 Acquired absence of kidney; Z20.822 Contact with and (suspected) exposure to COVID-19
CPT/HCPCS: 36415; 71045; 71275; 78452; 80053; 80061; 83036; 84439; 84443; 84481; 84484; 85025; 87070; 87205; 93005; 93017; 93306; 96365; 96367; 96372; A9500; G0378; J0456; J0696; J1650; Q9967; U0002

== ENCOUNTER 2022-04-12 10:31 | Outpatient (CLI) | payer OTHER | END 2022-04-12 10:32 | disposition home or self-care (01) | LOC: CTENTCT 10:31 | PROVIDERS: ATTEND Otolaryngology Plastic Surgery within the Head & Neck | DX: J42 Unspecified chronic bronchitis (principal) | CPT/HCPCS: 70486 ==

== ENCOUNTER 2022-04-19 08:50 | Outpatient (CLI) | payer OTHER | END 2022-04-19 08:51 | disposition home or self-care (01) | LOC: RAD 08:50 | PROVIDERS: ATTEND Internal Medicine Critical Care Medicine | DX: R06.00 Dyspnea, unspecified (principal); R91.8 Other nonspecific abnormal finding of lung field | CPT/HCPCS: 71046 ==

== ENCOUNTER 2022-08-04 08:46 | Emergency (ER) | payer OTHER ==
[2022-08-04 09:28] LABS: #Eosinphils 0.2 thou/uL (0.0-0.7); #Lymphocytes 1.6 thou/uL (1.20-3.40); #Monocytes 0.6 thou/uL (0.11-0.59); %Basophils 0.2 % (0.0-1.0); %Eosinophils 1.5 % (0.0-10.0); %Lymphocytes 15.6 % (21.0-51.0); %Monocytes 5.3 % (0.0-10.0); %Neutrophils 77.3 % (42.0-75.0); Hemoglobin 11.1 g/dL (14.0-18.0); Mean Corpuscular HGB CONC 31.7 g/dL (32.0-36.0); Mean Corpuscular Hemoglobin 25.7 pg (27.0-31.0); Mean Corpuscular Volume 80.9 fL (78.0-98.0); Mean Platelet Volume 7.8 fL (7.4-10.4); Platelet Count 469 thou/uL (130-400); RBC Distribution Width 14.6 % (11.5-14.5); Red Blood Cell (RBC) Count 4.32 mill/uL (4.70-6.10); White Blood Cell (WBC) Count 10.3 thou/uL (4.8-10.8)
[2022-08-04 09:46] LABS: ALT (SGPT) 43 U/L (8-55); AST (SGOT) 46 U/L (5-34); Albumin 3.4 g/dL (3.5-5.0); Alkaline Phosphatase 102 U/L (40-110); Anion Gap 14 mmol/L (10-20); BUN (Urea Nitrogen) 23 mg/dL (8.4-25.7); Bilirubin, Total 0.7 mg/dL (0.2-1.2); Calc. Creatinine Clearance 0 mL/min (70-130); Calcium 8.6 mg/dL (7.8-10.44); Carbon Dioxide 22 mmol/L (22-29); Chloride 102 mmol/L (98-107); Estimated GFR 46; Globulin 3.8 g/dL (2.4-3.5); Glucose 115 mg/dL (70-105); Lipase 23 U/L (8-78); Potassium 4.1 mmol/L (3.5-5.1); Protein, Total 7.2 g/dL (6.0-8.3); Sodium 134 mmol/L (136-145)
[2022-08-04 10:47] LABS: Bacteria/HPF None Seen HPF (None Seen); Bilirubin Negative (Negative); Blood, Urine Negative (Negative); Clarity Clear (Clear); Glucose, Urine (Dipstick) Normal (Negative); Ketone, Urine Negative (Negative); Leukocyte Negative Leu/uL (Negative); Nitrite Negative (Negative); Protein, Urine (Dipstick) 30 mg/dL (Neg-Trace); RBC/HPF 0-3 HPF (0-3); Specific Gravity, Urine 1.026 (1.002-1.036); Squamous Epithelial None Seen HPF (0-3); Urobilinogen Normal mg/dL (Less than 2); WBC/HPF 0-3 HPF (0-3); pH, Urine 5.5 (5.0-9.0)
[2022-08-04] MEDS ORDERED: Iopamidol 370 76% 50 ML VIAL FS ONE (14:27)
== END 2022-08-04 13:09 | disposition home or self-care (01) ==
LOC: ERS 08:46
DX: C78.6 Secondary malignant neoplasm of retroperitoneum and peritoneum (principal); R18.8 Other ascites; I10 Essential (primary) hypertension; Z85.528 Personal history of other malignant neoplasm of kidney; Z79.899 Other long term (current) drug therapy
CPT/HCPCS: 71045; 74177; 80053; 81003; 81015; 83690; 85025; Q9967

== ENCOUNTER 2022-11-03 08:56 | Outpatient (CLI) | payer OTHER ==
[~2022-11-03 08:56] MED LIST: Iopamidol 370 76% 100 ML VIAL ONE
== END 2022-11-03 08:57 | disposition home or self-care (01) ==
LOC: BICCT 08:56
PROVIDERS: ATTEND Internal Medicine Hematology & Oncology
DX: C64.2 Malignant neoplasm of left kidney, except renal pelvis (principal); C79.89 Secondary malignant neoplasm of other specified sites; R91.1 Solitary pulmonary nodule; R18.8 Other ascites; C78.6 Secondary malignant neoplasm of retroperitoneum and peritoneum; J18.1 Lobar pneumonia, unspecified organism
CPT/HCPCS: 71260; 74177; 82565; Q9967

== ENCOUNTER 2022-12-23 12:32 | Outpatient (CLI) | payer OTHER ==
[~2022-12-23 12:32] MED LIST changes: -Iopamidol 370 76% 100 ML VIAL ONE; +Iopamidol-370 76% 500 ML 1 ML ONE
== END 2022-12-23 12:33 | disposition home or self-care (01) ==
LOC: BICCT 12:32
PROVIDERS: ATTEND Internal Medicine Hematology & Oncology
DX: C64.2 Malignant neoplasm of left kidney, except renal pelvis (principal); C79.89 Secondary malignant neoplasm of other specified sites; C78.6 Secondary malignant neoplasm of retroperitoneum and peritoneum; R59.0 Localized enlarged lymph nodes; M89.9 Disorder of bone, unspecified; J98.4 Other disorders of lung; J90 Pleural effusion, not elsewhere classified
CPT/HCPCS: 71260; 74177; 82565

== ENCOUNTER 2023-02-25 12:40 | Inpatient (IN) | payer OTHER ==
[2023-02-25] MEDS ORDERED: Ondansetron PF 4 MG/2 ML Vial ONE (13:54)
[2023-02-25] MEDS ORDERED: Morphine 4 MG/ML VIAL ONE ×2 (13:54→14:34)
[2023-02-25 14:22] LABS: #Basophils 0.1 thou/uL (0.0-0.2); #Eosinphils 0.1 thou/uL (0.0-0.7); #Lymphocytes 1.6 thou/uL (1.20-3.40); #Monocytes 0.3 thou/uL (0.11-0.59); #Neutrophils 5.3 thou/uL (1.40-6.50); %Basophils 0.7 % (0.0-1.0); %Eosinophils 0.8 % (0.0-10.0); %Lymphocytes 22.2 % (21.0-51.0); %Monocytes 3.6 % (0.0-10.0); %Neutrophils 72.7 % (42.0-75.0); Hemoglobin 15.1 g/dL (14.0-18.0); Mean Corpuscular HGB CONC 32.9 g/dL (32.0-36.0); Mean Corpuscular Hemoglobin 29.6 pg (27.0-31.0); Mean Corpuscular Volume 89.9 fl (78.0-98.0); Mean Platelet Volume 7.7 fL (7.4-10.4); Platelet Count 307 10x3/uL (130-400); RBC Distribution Width 16.3 % (11.5-14.5); Red Blood Cell (RBC) Count 5.08 mill/uL (4.70-6.10); White Blood Cell (WBC) Count 7.3 10x3/uL (4.8-10.8)
[2023-02-25 14:43] LABS: ALT (SGPT) 10 U/L (8-55); AST (SGOT) 23 U/L (5-34); Albumin 3.1 g/dL (3.4-4.8); Alkaline Phosphatase 88 U/L (40-110); Anion Gap 14 mmol/L (10-20); BUN (Urea Nitrogen) 13 mg/dL (8.4-25.7); Bilirubin, Total 0.9 mg/dL (0.2-1.2); Calc. Creatinine Clearance 0 mL/min (70-130); Calcium 8.3 mg/dL (7.8-10.44); Carbon Dioxide 22 mmol/L (23-31); Chloride 103 mmol/L (98-107); Estimated GFR 54; Globulin 3.3 g/dL (2.4-3.5); Glucose 97 mg/dL (80-115); Protein, Total 6.4 g/dL (5.8-8.1); Sodium 135 mmol/L (136-145)
[2023-02-25] MEDS ORDERED: Dexameth. Sod Phosp. 10 MG/ML (CHEMO USE ONLY) ONE (15:11)
[2023-02-25] MEDS ORDERED: Bisacodyl 10 MG SUPP PR PRN (16:50)
[2023-02-25] MEDS ORDERED: HYDROcodone/Acetaminophen 10/325 mg Tablet PO PRN (16:50)
[2023-02-25] MEDS ORDERED: Acetaminophen 325 MG TAB PO PRN (16:50)
[2023-02-25] MEDS ORDERED: fentaNYL 50 mcg/hour Patch TD SCH (17:00)
[2023-02-25 17:30] VITALS: BMI 30.9
[2023-02-25 19:51] LABS: Bacteria/HPF None Seen HPF (None Seen); Bilirubin Negative (Negative); Blood, Urine Negative (Negative); Clarity Clear (Clear); Glucose, Urine (Dipstick) Normal (Negative); Ketone, Urine 40 mg/dL (Negative); Leukocyte Negative Leu/uL (Negative); Nitrite Negative (Negative); Protein, Urine (Dipstick) 50 mg/dL (Neg-Trace); RBC/HPF 0-3 HPF (0-3); Specific Gravity, Urine 1.035 (1.002-1.036); Squamous Epithelial 0-3 HPF (0-3); WBC/HPF None Seen HPF (0-3)
[2023-02-25] MEDS: Senokot S 8.6-50 MG TAB PO SCH (20:33)
[2023-02-26] MEDS: Ondansetron PF 4 MG/2 ML Vial IVP PRN ×2 (01:33→18:04)
[2023-02-26] MEDS ORDERED: Famotidine 20 MG TAB PO SCH (05:00)
[2023-02-26] MEDS ORDERED: Promethazine HCl 12.5 MG in Sodium Chloride 0.9% 50 ML IVPB SCH (05:00)
[2023-02-26 05:05] LABS: #Lymphocytes 1.8 thou/uL (1.20-3.40); #Monocytes 0.5 thou/uL (0.11-0.59); #Neutrophils 8.6 thou/uL (1.40-6.50); %Eosinophils 0.2 % (0.0-10.0); %Lymphocytes 16.5 % (21.0-51.0); %Monocytes 4.3 % (0.0-10.0); Hemoglobin 15.8 g/dL (14.0-18.0); Mean Corpuscular HGB CONC 33.2 g/dL (32.0-36.0); Mean Corpuscular Hemoglobin 30.2 pg (27.0-31.0); Mean Corpuscular Volume 90.8 fl (78.0-98.0); Mean Platelet Volume 7.6 fL (7.4-10.4); Platelet Count 331 10x3/uL (130-400); RBC Distribution Width 16.3 % (11.5-14.5); Red Blood Cell (RBC) Count 5.22 mill/uL (4.70-6.10); White Blood Cell (WBC) Count 10.9 10x3/uL (4.8-10.8)
[2023-02-26 05:24] LABS: Anion Gap 12 mmol/L (10-20); BUN (Urea Nitrogen) 16 mg/dL (8.4-25.7); Calc. Creatinine Clearance 67 mL/min (70-130); Calcium 8.6 mg/dL (7.8-10.44); Carbon Dioxide 22 mmol/L (23-31); Chloride 102 mmol/L (98-107); Estimated GFR 60; Glucose 106 mg/dL (80-115); Sodium 132 mmol/L (136-145)
[2023-02-26] MEDS: Levothyroxine Sodium 100 MCG TAB PO SCH (06:06)
[2023-02-26] MEDS: Polyethylene Glycol 3350 17 GM Packet PO SCH (09:16)
[2023-02-26] MEDS: Senokot S 8.6-50 MG TAB PO SCH ×2 (09:16→20:15)
[2023-02-26] MEDS: Morphine 4 MG/ML VIAL SLOW IVP PRN ×2 (12:44→18:44)
[2023-02-26] MEDS ORDERED: cloNIDine 0.1 MG TAB PO PRN (16:19)
[2023-02-26] MEDS ORDERED: Chlorthalidone 25 MG TAB PO SCH (16:30)
[2023-02-26] MEDS: Promethazine HCl 12.5 MG in Sodium Chloride 0.9% 50 ML IVPB PRN (18:15)
[2023-02-26] MEDS: Simethicone Chewable 80 MG TAB PO PRN (22:44)
[2023-02-27] MEDS: HYDROcodone/Acetaminophen 7.5/325 mg Tablet PO PRN ×3 (03:18→16:24)
[2023-02-27] MEDS: Levothyroxine Sodium 100 MCG TAB PO SCH (05:50)
[2023-02-27] MEDS: Simethicone Chewable 80 MG TAB PO PRN ×2 (08:31→13:29)
[2023-02-27] MEDS: Senokot S 8.6-50 MG TAB PO SCH ×2 (08:31→20:53)
[2023-02-27] MEDS: Polyethylene Glycol 3350 17 GM Packet PO SCH (08:31)
[2023-02-27] MEDS ORDERED: Chlorthalidone 25 MG TAB PO SCH (09:00)
[2023-02-27] MEDS ORDERED: Famotidine 20 MG TAB PO PRN (09:42)
[2023-02-27] MEDS: Morphine 4 MG/ML VIAL SLOW IVP PRN ×2 (11:59→20:55)
[2023-02-27] MEDS: Promethazine HCl 12.5 MG in Sodium Chloride 0.9% 50 ML IVPB PRN (15:18)
[2023-02-28] MEDS: Morphine 4 MG/ML VIAL SLOW IVP PRN (01:07)
[2023-02-28] MEDS: Levothyroxine Sodium 100 MCG TAB PO SCH ×2 (05:51→07:09)
[2023-02-28] MEDS: Simethicone Chewable 80 MG TAB PO PRN (08:12)
[2023-02-28] MEDS: Promethazine HCl 12.5 MG in Sodium Chloride 0.9% 50 ML IVPB PRN (08:13)
[2023-02-28] MEDS: HYDROcodone/Acetaminophen 7.5/325 mg Tablet PO PRN (08:20)
[2023-02-28 09:12] VITALS: BP 109/72; TEMP 97.4
[2023-02-28] MEDS: Senokot S 8.6-50 MG TAB PO SCH (09:17)
[2023-02-28] MEDS: Polyethylene Glycol 3350 17 GM Packet PO SCH (09:17)
== END 2023-02-28 10:40 | disposition home or self-care (01) | DRG 543 ==
LOC: ERS 12:40 → MSONC 15:25 → OBSVTOIN 02-27 16:31
PROVIDERS: ADMIT Family Medicine; ATTEND Family Medicine
DX: M84.58XA Pathological fracture in neoplastic disease, other specified site, initial encounter for fracture (principal); C64.2 Malignant neoplasm of left kidney, except renal pelvis; C79.70 Secondary malignant neoplasm of unspecified adrenal gland; C79.51 Secondary malignant neoplasm of bone; C78.6 Secondary malignant neoplasm of retroperitoneum and peritoneum; I10 Essential (primary) hypertension; E03.9 Hypothyroidism, unspecified; E78.00 Pure hypercholesterolemia, unspecified; M10.9 Gout, unspecified; Z79.899 Other long term (current) drug therapy; Z79.890 Hormone replacement therapy; Z79.82 Long term (current) use of aspirin; Z90.49 Acquired absence of other specified parts of digestive tract; Z98.890 Other specified postprocedural states; Z87.891 Personal history of nicotine dependence; Z90.5 Acquired absence of kidney; Z90.89 Acquired absence of other organs
CPT/HCPCS: 36415; 72157; 74176; 76705; 80048; 80053; 81001; 85025; 96372; 96374; 96375; 96376; G0378; J1100; J1650; J2270; J2405; J2550

== ENCOUNTER 2023-03-08 09:37 | Outpatient (CLI) | payer OTHER ==
[2023-03-08] MEDS ORDERED: Iopamidol 370 76% 100 ML VIAL ONE (09:44)
== END 2023-03-08 09:38 | disposition home or self-care (01) ==
LOC: CT 09:37
PROVIDERS: ATTEND Internal Medicine Hematology & Oncology
DX: C64.2 Malignant neoplasm of left kidney, except renal pelvis (principal); C79.89 Secondary malignant neoplasm of other specified sites; R91.8 Other nonspecific abnormal finding of lung field; J18.1 Lobar pneumonia, unspecified organism; R59.0 Localized enlarged lymph nodes; M84.48XA Pathological fracture, other site, initial encounter for fracture
CPT/HCPCS: 71260; Q9967

== ENCOUNTER 2023-03-30 11:24 | Inpatient (IN) | payer OTHER ==
[~2023-03-30 11:24] MED LIST changes: -Iopamidol-370 76% 500 ML 1 ML ONE; +Iopamidol-370 76% 500 ML MDV (1 ML CHARGE) ONE
[2023-03-30 12:32] LABS: #Basophils 0.1 thou/uL (0.0-0.2); #Eosinphils 0.1 thou/uL (0.0-0.7); #Monocytes 0.8 thou/uL (0.11-0.59); #Neutrophils 11.2 thou/uL (1.40-6.50); %Basophils 0.4 % (0.0-1.0); %Eosinophils 0.4 % (0.0-10.0); %Lymphocytes 7.2 % (21.0-51.0); %Monocytes 6.2 % (0.0-10.0); %Neutrophils 83.3 % (42.0-75.0); Hemoglobin 9.5 g/dL (14.0-18.0); Mean Corpuscular HGB CONC 31.8 g/dL (32.0-36.0); Mean Corpuscular Hemoglobin 28.4 pg (27.0-31.0); Mean Corpuscular Volume 89.3 fl (78.0-98.0); Mean Platelet Volume 9.9 fL (7.4-10.4); Platelet Count 314 10x3/uL (130-400); RBC Distribution Width 15.8 % (11.5-14.5); Red Blood Cell (RBC) Count 3.35 mill/uL (4.70-6.10); White Blood Cell (WBC) Count 13.5 10x3/uL (4.8-10.8)
[2023-03-30 12:55] LABS: ALT (SGPT) 10 U/L (8-55); AST (SGOT) 20 U/L (5-34); Albumin 2.7 g/dL (3.4-4.8); Alkaline Phosphatase 81 U/L (40-110); Anion Gap 16 mmol/L (10-20); BUN (Urea Nitrogen) 34 mg/dL (8.4-25.7); Bilirubin, Total 0.9 mg/dL (0.2-1.2); Calc. Creatinine Clearance 0 mL/min (70-130); Calcium 8.5 mg/dL (7.8-10.44); Carbon Dioxide 24 mmol/L (23-31); Chloride 95 mmol/L (98-107); Estimated GFR 35; Globulin 3.2 g/dL (2.4-3.5); Glucose 103 mg/dL (80-115); Lipase 11 U/L (8-78); Magnesium 2.1 mg/dL (1.6-2.6); Potassium 5.4 mmol/L (3.5-5.1); Protein, Total 5.9 g/dL (5.8-8.1); Sodium 130 mmol/L (136-145)
[2023-03-30] MEDS ORDERED: Furosemide 40 MG/4 ML VIAL ONE (13:33)
[2023-03-30 15:37] LABS: Bacteria/HPF None Seen HPF (None Seen); Bilirubin Negative (Negative); Blood, Urine Negative (Negative); CAUTI Indications for Culture Immunosuppressed; Clarity Clear (Clear); Glucose, Urine (Dipstick) Normal (Negative); Ketone, Urine 10 mg/dL (Negative); Leukocyte Negative Leu/uL (Negative); Nitrite Negative (Negative); Protein, Urine (Dipstick) 10 mg/dL (Neg-Trace); RBC/HPF None Seen HPF (0-3); Specific Gravity, Urine 1.022 (1.002-1.036); Squamous Epithelial None Seen HPF (0-3); Urobilinogen Normal mg/dL (Less than 2); WBC/HPF 0-3 HPF (0-3); pH, Urine 5.5 (5.0-9.0)
[2023-03-30 15:39] LABS: Urine Culture Reflex Yes Yes
[2023-03-30 17:58] VITALS: BMI 31.3
[2023-03-30] MEDS ORDERED: Piperacillin/Tazobactam 3.375 GM in Sodium Chloride 0.9% 100 ML IVPB SCH (18:45)
[2023-03-30] MEDS: fentaNYL 50 mcg/hour Patch TD SCH (19:44)
[2023-03-30] MEDS: Ondansetron ODT 4 MG TAB PO PRN (21:49)
[2023-03-30] MEDS: HYDROcodone/Acetaminophen 7.5/325 mg Tablet PO PRN (21:50)
[2023-03-30] MEDS: Albumin 25% 25 GM/100 ML BOT IVPB SCH (23:00)
[2023-03-31] MEDS: Piperacillin/Tazobactam 3.375 GM in Sodium Chloride 0.9% 100 ML IVPB SCH ×4 (00:17→22:55)
[2023-03-31] MEDS: Levothyroxine Sodium 125 MCG TAB PO SCH (05:25)
[2023-03-31] MEDS: Albumin 25% 25 GM/100 ML BOT IVPB SCH ×2 (05:26→20:57)
[2023-03-31 05:37] LABS: #Basophils 0.1 thou/uL (0.0-0.2); #Eosinphils 0.1 thou/uL (0.0-0.7); #Monocytes 0.9 thou/uL (0.11-0.59); #Neutrophils 9.4 thou/uL (1.40-6.50); %Basophils 0.5 % (0.0-1.0); %Eosinophils 0.8 % (0.0-10.0); %Lymphocytes 10.4 % (21.0-51.0); %Monocytes 7.2 % (0.0-10.0); %Neutrophils 77.3 % (42.0-75.0); Hemoglobin 8.5 g/dL (14.0-18.0); Mean Corpuscular HGB CONC 31.5 g/dL (32.0-36.0); Mean Corpuscular Hemoglobin 28.1 pg (27.0-31.0); Mean Corpuscular Volume 89.1 fl (78.0-98.0); Mean Platelet Volume 10.3 fL (7.4-10.4); Platelet Count 281 10x3/uL (130-400); RBC Distribution Width 15.9 % (11.5-14.5); Red Blood Cell (RBC) Count 3.03 mill/uL (4.70-6.10); White Blood Cell (WBC) Count 12.1 10x3/uL (4.8-10.8)
[2023-03-31 05:57] LABS: Anion Gap 16 mmol/L (10-20); BUN (Urea Nitrogen) 36 mg/dL (8.4-25.7); Calc. Creatinine Clearance 38 mL/min (70-130); Calcium 8.4 mg/dL (7.8-10.44); Carbon Dioxide 24 mmol/L (23-31); Chloride 96 mmol/L (98-107); Estimated GFR 29; Glucose 100 mg/dL (80-115); Potassium 5.2 mmol/L (3.5-5.1); Sodium 131 mmol/L (136-145)
[2023-03-31] MEDS ORDERED: Furosemide 40 MG/4 ML VIAL SLOW IVP SCH (06:00)
[2023-03-31] MEDS ORDERED: Levothyroxine Sodium 100 MCG TAB PO SCH (06:00)
[2023-03-31] MEDS: Polyethylene Glycol 3350 17 GM Packet PO SCH ×2 (08:46→09:25)
[2023-03-31] MEDS ORDERED: Albumin 25% 25 GM/100 ML BOT IVPB SCH (12:00)
[2023-03-31] MEDS: HYDROcodone/Acetaminophen 7.5/325 mg Tablet PO PRN ×2 (12:05→16:38)
[2023-03-31] MEDS: Ondansetron ODT 4 MG TAB PO PRN (12:05)
[2023-03-31] MEDS ORDERED: Sodium Chloride 0.9% 500 ML IVPB SCH (15:30)
[2023-03-31] MEDS ORDERED: Sodium Chloride 0.9% 250 ML 200 ML IVPB SCH (15:45)
[2023-03-31] MEDS: Acetaminophen 325 MG TAB PO PRN (21:02)
[2023-04-01] MEDS: Albumin 25% 25 GM/100 ML BOT IVPB SCH ×2 (03:31→08:42)
[2023-04-01] MEDS: Acetaminophen 325 MG TAB PO PRN ×2 (03:39→08:57)
[2023-04-01 05:09] LABS: #Basophils 0.1 thou/uL (0.0-0.2); #Eosinphils 0.2 thou/uL (0.0-0.7); #Monocytes 0.7 thou/uL (0.11-0.59); #Neutrophils 10.8 thou/uL (1.40-6.50); %Basophils 0.4 % (0.0-1.0); %Eosinophils 1.4 % (0.0-10.0); %Monocytes 5.6 % (0.0-10.0); %Neutrophils 82.5 % (42.0-75.0); Hemoglobin 7.3 g/dL (14.0-18.0); Mean Corpuscular HGB CONC 30.8 g/dL (32.0-36.0); Mean Corpuscular Hemoglobin 27.8 pg (27.0-31.0); Mean Corpuscular Volume 90.1 fl (78.0-98.0); Mean Platelet Volume 10.2 fL (7.4-10.4); Platelet Count 271 10x3/uL (130-400); RBC Distribution Width 15.9 % (11.5-14.5); Red Blood Cell (RBC) Count 2.63 mill/uL (4.70-6.10); White Blood Cell (WBC) Count 13.1 10x3/uL (4.8-10.8)
[2023-04-01] MEDS: Levothyroxine Sodium 125 MCG TAB PO SCH (05:23)
[2023-04-01 05:35] LABS: ALT (SGPT) 7 U/L (8-55); AST (SGOT) 14 U/L (5-34); Albumin 4.1 g/dL (3.4-4.8); Alkaline Phosphatase 53 U/L (40-110); Anion Gap 16 mmol/L (10-20); BUN (Urea Nitrogen) 38 mg/dL (8.4-25.7); Bilirubin, Total 0.6 mg/dL (0.2-1.2); Calc. Creatinine Clearance 34 mL/min (70-130); Calcium 8.7 mg/dL (7.8-10.44); Carbon Dioxide 24 mmol/L (23-31); Chloride 97 mmol/L (98-107); Estimated GFR 25; Globulin 2.3 g/dL (2.4-3.5); Glucose 102 mg/dL (80-115); Magnesium 2.1 mg/dL (1.6-2.6); Potassium 4.1 mmol/L (3.5-5.1); Protein, Total 6.4 g/dL (5.8-8.1); Sodium 133 mmol/L (136-145)
[2023-04-01] MEDS: Piperacillin/Tazobactam 3.375 GM in Sodium Chloride 0.9% 100 ML IVPB SCH ×3 (08:41→23:38)
[2023-04-01] MEDS: Furosemide 40 MG/4 ML VIAL SLOW IVP SCH (08:41)
[2023-04-01] MEDS: Polyethylene Glycol 3350 17 GM Packet PO SCH (08:42)
[2023-04-01] MEDS ORDERED: Cosyntropin 250 MCG VIAL SLOW IVP SCH (09:15)
[2023-04-01] MEDS: Ondansetron ODT 4 MG TAB PO PRN (14:42)
[2023-04-01] MEDS: HYDROcodone/Acetaminophen 7.5/325 mg Tablet PO PRN (14:42)
[2023-04-01] MEDS: fentaNYL 50 mcg/hour Patch TD SCH (20:17)
[2023-04-02 05:34] LABS: #Eosinphils 0.1 thou/uL (0.0-0.7); #Monocytes 0.8 thou/uL (0.11-0.59); #Neutrophils 11.9 thou/uL (1.40-6.50); %Basophils 0.3 % (0.0-1.0); %Eosinophils 0.8 % (0.0-10.0); %Lymphocytes 7.4 % (21.0-51.0); %Monocytes 5.9 % (0.0-10.0); %Neutrophils 83.5 % (42.0-75.0); Hemoglobin 7.2 g/dL (14.0-18.0); Mean Corpuscular HGB CONC 31.9 g/dL (32.0-36.0); Mean Corpuscular Hemoglobin 28.6 pg (27.0-31.0); Mean Corpuscular Volume 89.7 fl (78.0-98.0); Mean Platelet Volume 10.4 fL (7.4-10.4); Platelet Count 307 10x3/uL (130-400); RBC Distribution Width 15.9 % (11.5-14.5); Red Blood Cell (RBC) Count 2.52 mill/uL (4.70-6.10); White Blood Cell (WBC) Count 14.2 10x3/uL (4.8-10.8)
[2023-04-02 06:04] LABS: Anion Gap 16 mmol/L (10-20); BUN (Urea Nitrogen) 37 mg/dL (8.4-25.7); Calc. Creatinine Clearance 33 mL/min (70-130); Calcium 8.8 mg/dL (7.8-10.44); Carbon Dioxide 26 mmol/L (23-31); Chloride 99 mmol/L (98-107); Estimated GFR 25; Glucose 102 mg/dL (80-115); Potassium 4.6 mmol/L (3.5-5.1); Sodium 136 mmol/L (136-145)
[2023-04-02] MEDS: Levothyroxine Sodium 125 MCG TAB PO SCH (06:20)
[2023-04-02] MEDS: cefTRIAXone\\ROCEPHIN 1 GM in Sodium Chloride 0.9% 100 ML IVPB SCH (08:06)
[2023-04-02] MEDS: Furosemide 40 MG/4 ML VIAL SLOW IVP SCH (08:06)
[2023-04-02] MEDS: Polyethylene Glycol 3350 17 GM Packet PO SCH (10:11)
[2023-04-02] MEDS: HYDROcodone/Acetaminophen 7.5/325 mg Tablet PO PRN (18:28)
[2023-04-02] MEDS: Ondansetron ODT 4 MG TAB PO PRN (18:28)
[2023-04-03] MEDS ORDERED: Sodium Chloride 0.65% Nasal 44 ML BOT EA NARE PRN (00:16)
[2023-04-03 06:05] LABS: #Basophils 0.1 thou/uL (0.0-0.2); #Eosinphils 0.2 thou/uL (0.0-0.7); #Monocytes 1.1 thou/uL (0.11-0.59); #Neutrophils 12.6 thou/uL (1.40-6.50); %Basophils 0.5 % (0.0-1.0); %Eosinophils 1.1 % (0.0-10.0); %Lymphocytes 9.6 % (21.0-51.0); %Monocytes 6.7 % (0.0-10.0); %Neutrophils 79.2 % (42.0-75.0); Hemoglobin 8.7 g/dL (14.0-18.0); Mean Corpuscular HGB CONC 31.4 g/dL (32.0-36.0); Mean Corpuscular Hemoglobin 28.2 pg (27.0-31.0); Mean Corpuscular Volume 89.9 fl (78.0-98.0); Mean Platelet Volume 10.3 fL (7.4-10.4); Platelet Count 315 10x3/uL (130-400); Red Blood Cell (RBC) Count 3.08 mill/uL (4.70-6.10); White Blood Cell (WBC) Count 15.9 10x3/uL (4.8-10.8)
[2023-04-03] MEDS: Levothyroxine Sodium 125 MCG TAB PO SCH (06:14)
[2023-04-03 06:31] LABS: Anion Gap 17 mmol/L (10-20); BUN (Urea Nitrogen) 37 mg/dL (8.4-25.7); Calc. Creatinine Clearance 35 mL/min (70-130); Calcium 8.7 mg/dL (7.8-10.44); Carbon Dioxide 22 mmol/L (23-31); Chloride 99 mmol/L (98-107); Estimated GFR 27; Glucose 103 mg/dL (80-115); Potassium 4.5 mmol/L (3.5-5.1); Sodium 133 mmol/L (136-145)
[2023-04-03] MEDS: Ondansetron PF 4 MG/2 ML Vial IVP PRN ×2 (10:19→16:21)
[2023-04-03] MEDS: HYDROcodone/Acetaminophen 7.5/325 mg Tablet PO PRN ×3 (10:25→21:48)
[2023-04-03] MEDS: Polyethylene Glycol 3350 17 GM Packet PO SCH ×2 (10:27→10:39)
[2023-04-03] MEDS: Furosemide 40 MG/4 ML VIAL SLOW IVP SCH (10:27)
[2023-04-03] MEDS: cefTRIAXone\\ROCEPHIN 1 GM in Sodium Chloride 0.9% 100 ML IVPB SCH (10:27)
[2023-04-03] MEDS: fentaNYL 50 mcg/hour Patch TD SCH (21:26)
[2023-04-03] MEDS: Ondansetron ODT 4 MG TAB PO PRN (21:48)
[2023-04-04] MEDS: Levothyroxine Sodium 125 MCG TAB PO SCH (05:14)
[2023-04-04 05:53] LABS: #Basophils 0.1 thou/uL (0.0-0.2); #Eosinphils 0.2 thou/uL (0.0-0.7); #Neutrophils 12.4 thou/uL (1.40-6.50); %Basophils 0.5 % (0.0-1.0); %Eosinophils 1.3 % (0.0-10.0); %Lymphocytes 10.4 % (21.0-51.0); %Monocytes 6.5 % (0.0-10.0); %Neutrophils 77.7 % (42.0-75.0); Hemoglobin 8.4 g/dL (14.0-18.0); Mean Corpuscular HGB CONC 31.3 g/dL (32.0-36.0); Mean Corpuscular Hemoglobin 28.9 pg (27.0-31.0); Mean Corpuscular Volume 92.1 fl (78.0-98.0); Mean Platelet Volume 10.3 fL (7.4-10.4); Platelet Count 340 10x3/uL (130-400); RBC Distribution Width 15.9 % (11.5-14.5); Red Blood Cell (RBC) Count 2.91 mill/uL (4.70-6.10); White Blood Cell (WBC) Count 15.9 10x3/uL (4.8-10.8)
[2023-04-04 06:18] LABS: Anion Gap 14 mmol/L (10-20); BUN (Urea Nitrogen) 41 mg/dL (8.4-25.7); Calc. Creatinine Clearance 28 mL/min (70-130); Calcium 8.7 mg/dL (7.8-10.44); Carbon Dioxide 25 mmol/L (23-31); Chloride 96 mmol/L (98-107); Estimated GFR 20; Glucose 99 mg/dL (80-115); Potassium 4.2 mmol/L (3.5-5.1); Sodium 131 mmol/L (136-145)
[2023-04-04] MEDS ORDERED: VANCOMYCIN IVPB PRN (08:03)
[2023-04-04] MEDS ORDERED: Vancomycin Dose by Levels Sliding Scale (Wt 71-99) FS SCH (08:15)
[2023-04-04] MEDS ORDERED: Piperacillin/Tazobactam 3.375 GM in Sodium Chloride 0.9% 100 ML IVPB SCH (08:15)
[2023-04-04] MEDS ORDERED: Vancomycin 1.5 GRAM/300 ML BAG 1.5 GM in Premix Bag 1 BAG IVPB SCH (08:30)
[2023-04-04] MEDS: Ondansetron PF 4 MG/2 ML Vial IVP PRN ×3 (09:00→20:06)
[2023-04-04] MEDS: HYDROcodone/Acetaminophen 7.5/325 mg Tablet PO PRN ×2 (09:00→14:59)
[2023-04-04] MEDS ORDERED: Linezolid 600 MG in Premix Bag 1 BAG IVPB SCH (09:00)
[2023-04-04] MEDS: Furosemide 40 MG/4 ML VIAL SLOW IVP SCH (09:48)
[2023-04-04] MEDS: Polyethylene Glycol 3350 17 GM Packet PO SCH (09:50)
[2023-04-04] MEDS ORDERED: Morphine 2 MG/ML VIAL SLOW IVP SCH (11:45)
[2023-04-04] MEDS: Piperacillin/Tazobactam 3.375 GM in Sodium Chloride 0.9% 100 ML IVPB SCH ×2 (13:51→18:58)
[2023-04-04] MEDS: Morphine 2 MG/ML VIAL SLOW IVP PRN (20:06)
[2023-04-05] MEDS: Levothyroxine Sodium 125 MCG TAB PO SCH (05:01)
[2023-04-05] MEDS: Piperacillin/Tazobactam 3.375 GM in Sodium Chloride 0.9% 100 ML IVPB SCH ×2 (05:01→17:34)
[2023-04-05 05:58] LABS: %Lymphocytes 6.1 % (21.0-51.0); %Neutrophils 84.5 % (42.0-75.0); Hemoglobin 7.8 g/dL (14.0-18.0); Mean Corpuscular HGB CONC 32.1 g/dL (32.0-36.0); Mean Corpuscular Hemoglobin 28.8 pg (27.0-31.0); Mean Corpuscular Volume 89.7 fl (78.0-98.0); Mean Platelet Volume 10.1 fL (7.4-10.4); Platelet Count 300 10x3/uL (130-400); Red Blood Cell (RBC) Count 2.71 mill/uL (4.70-6.10); White Blood Cell (WBC) Count 16.4 10x3/uL (4.8-10.8)
[2023-04-05 05:59] LABS: #Basophils 0.1 thou/uL (0.0-0.2); #Eosinphils 0.1 thou/uL (0.0-0.7); #Monocytes 0.9 thou/uL (0.11-0.59); #Neutrophils 13.9 thou/uL (1.40-6.50); %Basophils 0.4 % (0.0-1.0); %Eosinophils 0.9 % (0.0-10.0); %Monocytes 5.5 % (0.0-10.0)
[2023-04-05 06:20] LABS: Anion Gap 16 mmol/L (10-20); BUN (Urea Nitrogen) 46 mg/dL (8.4-25.7); Calc. Creatinine Clearance 22 mL/min (70-130); Calcium 8.5 mg/dL (7.8-10.44); Carbon Dioxide 22 mmol/L (23-31); Chloride 97 mmol/L (98-107); Estimated GFR 15; Glucose 106 mg/dL (80-115); Potassium 4.3 mmol/L (3.5-5.1); Sodium 131 mmol/L (136-145)
[2023-04-05] MEDS: Morphine 2 MG/ML VIAL SLOW IVP PRN ×4 (09:09→21:27)
[2023-04-05] MEDS: Albumin 25% 25 GM/100 ML BOT IVPB SCH ×3 (09:10→21:29)
[2023-04-05] MEDS: Polyethylene Glycol 3350 17 GM Packet PO SCH (09:10)
[2023-04-05 10:07] LABS: Vancomycin, Random 22.5 ug/mL (See Comment)
[2023-04-05] MEDS: Ondansetron PF 4 MG/2 ML Vial IVP PRN (17:37)
[2023-04-05] MEDS: fentaNYL 50 mcg/hour Patch TD SCH (19:59)
[2023-04-06] MEDS: Albumin 25% 25 GM/100 ML BOT IVPB SCH (02:42)
[2023-04-06] MEDS: HYDROcodone/Acetaminophen 7.5/325 mg Tablet PO PRN ×2 (03:55→14:07)
[2023-04-06] MEDS: Ondansetron PF 4 MG/2 ML Vial IVP PRN (03:55)
[2023-04-06 05:44] LABS: #Eosinphils 0.2 thou/uL (0.0-0.7); #Monocytes 0.7 thou/uL (0.11-0.59); #Neutrophils 10.6 thou/uL (1.40-6.50); %Basophils 0.3 % (0.0-1.0); %Eosinophils 1.6 % (0.0-10.0); %Lymphocytes 7.8 % (21.0-51.0); %Monocytes 5.1 % (0.0-10.0); %Neutrophils 83.2 % (42.0-75.0); Hemoglobin 6.7 g/dL (14.0-18.0); Mean Corpuscular HGB CONC 30.9 g/dL (32.0-36.0); Mean Corpuscular Hemoglobin 28.4 pg (27.0-31.0); Mean Corpuscular Volume 91.9 fl (78.0-98.0); Mean Platelet Volume 9.7 fL (7.4-10.4); Platelet Count 273 10x3/uL (130-400); RBC Distribution Width 16.4 % (11.5-14.5); Red Blood Cell (RBC) Count 2.36 mill/uL (4.70-6.10); White Blood Cell (WBC) Count 12.8 10x3/uL (4.8-10.8)
[2023-04-06 06:08] LABS: Anion Gap 19 mmol/L (10-20); BUN (Urea Nitrogen) 51 mg/dL (8.4-25.7); Calc. Creatinine Clearance 21 mL/min (70-130); Calcium 8.9 mg/dL (7.8-10.44); Carbon Dioxide 21 mmol/L (23-31); Chloride 97 mmol/L (98-107); Estimated GFR 14; Glucose 94 mg/dL (80-115); Sodium 133 mmol/L (136-145)
[2023-04-06] MEDS: Piperacillin/Tazobactam 3.375 GM in Sodium Chloride 0.9% 100 ML IVPB SCH ×2 (06:15→17:02)
[2023-04-06] MEDS: Levothyroxine Sodium 125 MCG TAB PO SCH (06:15)
[2023-04-06] MEDS: Polyethylene Glycol 3350 17 GM Packet PO SCH ×2 (08:33→14:37)
[2023-04-06] MEDS: Morphine 2 MG/ML VIAL SLOW IVP PRN ×2 (08:38→20:59)
[2023-04-06] MEDS: Ondansetron ODT 4 MG TAB PO PRN (14:08)
[2023-04-07] MEDS: Morphine 2 MG/ML VIAL SLOW IVP PRN ×3 (02:58→11:23)
[2023-04-07 05:09] LABS: #Basophils 0.1 thou/uL (0.0-0.2); #Eosinphils 0.2 thou/uL (0.0-0.7); #Monocytes 0.9 thou/uL (0.11-0.59); %Basophils 0.4 % (0.0-1.0); %Eosinophils 1.3 % (0.0-10.0); %Lymphocytes 6.4 % (21.0-51.0); %Monocytes 5.7 % (0.0-10.0); %Neutrophils 83.9 % (42.0-75.0); Hemoglobin 8.6 g/dL (14.0-18.0); Mean Corpuscular HGB CONC 31.7 g/dL (32.0-36.0); Mean Platelet Volume 10.1 fL (7.4-10.4); Platelet Count 303 10x3/uL (130-400); RBC Distribution Width 18.2 % (11.5-14.5); Red Blood Cell (RBC) Count 3.07 mill/uL (4.70-6.10); White Blood Cell (WBC) Count 15.5 10x3/uL (4.8-10.8)
[2023-04-07 05:15] LABS: Mean Corpuscular Volume 88.3 fl (78.0-98.0)
[2023-04-07 05:28] LABS: Anion Gap 20 mmol/L (10-20); BUN (Urea Nitrogen) 55 mg/dL (8.4-25.7); Calc. Creatinine Clearance 20 mL/min (70-130); Carbon Dioxide 18 mmol/L (23-31); Chloride 98 mmol/L (98-107); Estimated GFR 13; Glucose 96 mg/dL (80-115); Potassium 4.3 mmol/L (3.5-5.1); Sodium 132 mmol/L (136-145)
[2023-04-07] MEDS: Levothyroxine Sodium 125 MCG TAB PO SCH (05:55)
[2023-04-07] MEDS: Piperacillin/Tazobactam 3.375 GM in Sodium Chloride 0.9% 100 ML IVPB SCH ×2 (05:55→17:22)
[2023-04-07] MEDS: Polyethylene Glycol 3350 17 GM Packet PO SCH (08:42)
[2023-04-07] MEDS: Morphine 4 MG/ML VIAL SLOW IVP PRN ×2 (15:36→19:59)
[2023-04-07] MEDS: fentaNYL 50 mcg/hour Patch TD SCH (20:00)
[2023-04-08] MEDS: Morphine 4 MG/ML VIAL SLOW IVP PRN ×2 (01:24→06:57)
[2023-04-08] MEDS: Piperacillin/Tazobactam 3.375 GM in Sodium Chloride 0.9% 100 ML IVPB SCH (05:23)
[2023-04-08] MEDS: Levothyroxine Sodium 125 MCG TAB PO SCH (06:50)
[2023-04-08 08:59] VITALS: BP 103/68; TEMP 97.4
[2023-04-08] MEDS: Polyethylene Glycol 3350 17 GM Packet PO SCH (09:54)
== END 2023-04-08 12:30 | disposition home or self-care (01) | DRG 374 ==
LOC: ERS 11:24 → MSONC 16:12
PROVIDERS: ADMIT Family Medicine; ATTEND Internal Medicine
PROC: 30233J1 Transfusion of Nonautologous Serum Albumin into Peripheral Vein, Percutaneous Approach (ICD-10-PCS; 2023-03-30)
PROC: 30233N1 Transfusion of Nonautologous Red Blood Cells into Peripheral Vein, Percutaneous Approach (ICD-10-PCS; principal; 2023-04-02)
DX: C78.89 Secondary malignant neoplasm of other digestive organs (principal); N17.0 Acute kidney failure with tubular necrosis; C64.2 Malignant neoplasm of left kidney, except renal pelvis; R18.0 Malignant ascites; C79.71 Secondary malignant neoplasm of right adrenal gland; C79.51 Secondary malignant neoplasm of bone; C74.92 Malignant neoplasm of unspecified part of left adrenal gland; J90 Pleural effusion, not elsewhere classified; N17.9 Acute kidney failure, unspecified; E87.1 Hypo-osmolality and hyponatremia; C78.7 Secondary malignant neoplasm of liver and intrahepatic bile duct; C78.80 Secondary malignant neoplasm of unspecified digestive organ; Z66 Do not resuscitate; Z51.5 Encounter for palliative care; I12.9 Hypertensive chronic kidney disease with stage 1 through stage 4 chronic kidney disease, or unspecified chronic kidney disease; N18.9 Chronic kidney disease, unspecified; E78.5 Hyperlipidemia, unspecified; Z96.653 Presence of artificial knee joint, bilateral; E03.9 Hypothyroidism, unspecified; D63.1 Anemia in chronic kidney disease; G89.29 Other chronic pain; E87.6 Hypokalemia; E88.09 Other disorders of plasma-protein metabolism, not elsewhere classified; D72.829 Elevated white blood cell count, unspecified; Z90.49 Acquired absence of other specified parts of digestive tract; Z98.890 Other specified postprocedural states; Z79.899 Other long term (current) drug therapy; Z79.890 Hormone replacement therapy
CPT/HCPCS: 36415; 36416; 36430; 71045; 74176; 74177; 80048; 80053; 80202; 80400; 81001; 83605; 83690; 83735; 83880; 84145; 84484; 85025; 86850; 86900; 86901; 87040; 87086; 93005; 93306; 94760; 96374; J0696; J0834; J1940; J2270; J2272; J2405; J2543; J3370; J3490; J7050; P9016; P9047; Q0162; Q9967